=== PATIENT | male | born 1990 ===

== ENCOUNTER 2023-11-25 01:19 | Emergency (ER) | payer MEDICAID ==
[~2023-11-25] VITALS: Ht 172.7 cm; Wt 83.9 kg
[2023-11-25 01:44] VITALS: O2SAT 97
== END 2023-11-25 02:10 | disposition home or self-care (01) ==
LOC: ER 01:21
DX: Z13.9 Encounter for screening, unspecified (principal)
CPT/HCPCS: A4606; A4663